=== PATIENT | male | born 1990 | race Caucasian/White ===

== ENCOUNTER 2019-12-12 01:08 | Outpatient (CLI) | payer OTHER, SELFPAY ==
--- NOTE | 2019-12-12 | DI.RAD_ITS ---
EXAM: XR HAND RT COMPLETE CLINICAL HISTORY: PUNCHED DOOR,SWELLING, WARMTH,PAIN, ?FX. TECHNIQUE: 2D digital imaging was performed. COMPARISON: No exams were available for comparison FINDINGS: There is a fracture extending obliquely through the mid 5th metacarpal. There is mild comminution. There is some displacement and ventral at angulation. No additional fractures are seen. IMPRESSION: Fifth metacarpal fracture. DATA REPOSITORY: RADIATION DOSE DELIVERED:
== END 2019-12-12 01:28 ==
PROVIDERS: Visit Provider Nurse Practitioner Adult Health
DX: S62.306A Unspecified fracture of fifth metacarpal bone, right hand, initial encounter for closed fracture (principal)
CPT/HCPCS: 73130

== ENCOUNTER 2019-12-27 11:10 | Outpatient (CLI) | payer OTHER, SELFPAY ==
--- NOTE | 2019-12-27 10:45 | DI.RAD_ITS ---
EXAM: XR HAND RT COMPLETE CLINICAL HISTORY: fracture of fifth metacarpal of right hand TECHNIQUE: COMPARISON: CR XR HAND RT COMPLETE from 12/12/2019 FINDINGS: Three views were obtained and show previously described fracture of the 5th metacarpal, there is been no gross interval change in alignment of the fracture fragments comparison with previous radiographs of December 11. Little if any evidence of healing at this time. IMPRESSION:
== END 2019-12-27 11:30 ==
PROVIDERS: PCP Nurse Practitioner Adult Health; Referring Provider Nurse Practitioner Adult Health; Visit Provider Physician Assistant
DX: S62.306A Unspecified fracture of fifth metacarpal bone, right hand, initial encounter for closed fracture (principal)
CPT/HCPCS: 73130